=== PATIENT | female | born 1990 | race Caucasian/White ===

== ENCOUNTER 2020-12-10 08:11 | Emergency (ER) | payer SELFPAY ==
[~2020-12-10] VITALS: Ht 165.1 cm; Wt 97.5 kg
[~2020-12-10 08:11] MED LIST: IBP600T1 PO; OMEP20TA2 PO; OXYC-12 PO; PRD20T PO; PREN-115 PO; SULF1TAB38 PO
[2020-12-10] MEDS ORDERED: ONDANSETRON 4 MG/2 ML (SDV) Z0FRAN ONE (08:38)
[2020-12-10] MEDS ORDERED: LACTATED RINGERS 1,000 ML IV ONE (08:38)
[2020-12-10] MEDS ORDERED: IBUPROFEN 600 MG (MOTRIN) TAB PO ONE ×2 (08:39→08:45)
[2020-12-10] MEDS ORDERED: LACTATED RINGERS 1,000 ML IV SCH (08:45)
[2020-12-10] MEDS ORDERED: ONDANSETRON 4 MG/2 ML (SDV) Z0FRAN IV ONE (08:45)
[2020-12-10 08:50] LABS: BASOPHILS % (AUTO) 0 % (0-10); EOSINOPHILS % (AUTO) 0 % (0-10); HEMATOCRIT 44 % (35-52); HEMOGLOBIN 14.7 g/dL (11.5-16.0); LYMPHOCYTES % (AUTO) 15 % (12-44); MEAN CORPUSCULAR HEMOGLOBIN 30 pg (25-34); MEAN CORPUSCULAR HGB CONC 34 g/dL (32-36); MEAN CORPUSCULAR VOLUME 88 fL (80-99); MEAN PLATELET VOLUME 10.4 fL (9.0-12.2); MONOCYTES # (AUTO) 0.3 10^3/uL (0.0-1.0); MONOCYTES % (AUTO) 4 % (0-12); NEUTROPHILS # (AUTO) 5.4 10^3/uL (1.8-7.8); NEUTROPHILS % (AUTO) 80 % (42-75); PLATELET COUNT 227 10^3/uL (130-400); WHITE BLOOD COUNT 6.7 10^3/uL (4.3-11.0)
[2020-12-10 08:58] LABS: ALBUMIN 3.9 GM/DL (3.2-4.5); POTASSIUM 3.5 MMOL/L (3.6-5.0)
[2020-12-10 08:59] LABS: CALCIUM 8.7 MG/DL (8.5-10.1)
[2020-12-10 09:02] LABS: BILIRUBIN,TOTAL 0.6 MG/DL (0.1-1.0)
[2020-12-10 09:04] LABS: CREATININE SERUM 0.84 MG/DL (0.60-1.30)
--- NOTE | 2020-12-10 09:15 | ED Respiratory ---
General Stated Complaint: COVID +,SOB Source: patient Exam Limitations: no limitations History of Present Illness Date Seen by Provider: Dec 10, 2020 Time Seen by Provider: 08:29 Initial Comments 30-year-old female otherwise healthy coming in due to shortness of breath. She was Covid positive on 12/02 with symptoms starting 11/29. Initial symptoms were cough, fever, nausea, vomiting, and body aches. She felt significantly better roughly 3 days ago. Yesterday, she began feeling worse again, had an elevated temperature again, and began feeling more short of breath. Early in the course of Covid she received antibiotics and steroids which she has finished. She states her dyspnea is constant, moderate, and worsening over time. He never felt that short of breath earlier on in the course. He does not smoke and denies any significant medical problems. He used a cell phone oxygen saturation at and thought it was in the 80s today and she came to the emergency department. Allergies and Home Medications Allergies Coded Allergies: No Known Drug Allergies (Unverified , 11/20/10) Home Medications Ibuprofen 600 Mg Tab, 600 MG PO q6h prn Prescribed by: SOCORRO BROOKE on 07/19/12901 Oxycodone Hcl/Acetaminophen 1 Each Tablet, 1 EACH PO Q4-6H PRN Prescribed by: SOCORRO BROOKE on 07/19/12901 Patient Home Medication List Home Medication List Reviewed: Yes Review of Systems Review of Systems Constitutional: fever EENTM: No blurred vision Respiratory: cough, short of breath Cardiovascular: No chest pain Gastrointestinal: No abdominal pain, No diarrhea; nausea; No vomiting Genitourinary: No dysuria : No Musculoskeletal: No back pain Skin: No rash Psychiatric/Neurological: Denies Anxiety, Denies Depressed Hematologic/Lymphatic: No Symptoms Reported Immunological/Allergic: no symptoms reported All Other Systems Reviewed Negative Unless Noted: Yes Past Znqsjql-Zimkdt-Fryhek Hx Patient Social History Tobacco Use?: No Immunizations Up To Date Tetanus Booster (TDap): Less than 5yrs PED Vaccines UTD: No Past Medical History Reproductive Disorders: No Sexually Transmitted Disease: No HIV/AIDS: No Physical Exam Vital Signs - First Documented 12/10/20 12/10/20 08:18 09:53 Temp 37.8 Pulse 134 Resp 26 B/P (MAP) 110/79 (89) Pulse Ox 91 O2 Delivery Room Air O2 Flow Rate 2.00 Capillary Refill : Height: '" Weight: lbs. oz. kg; BMI Method:Stated General Appearance: WD/WN, no apparent distress HEENT: PERRL/EOMI, normal ENT inspection, TMs normal, pharynx normal Neck: non-tender, full range of motion, supple, normal inspection Respiratory: chest non-tender, no respiratory distress, no accessory muscle use, crackles, other (Crackles in bases) Cardiovascular: regular rate, rhythm, no edema, no murmur, tachycardia Gastrointestinal: normal bowel sounds, non tender, soft; No guarding, No re bound Extremities: normal range of motion, non-tender, normal inspection, no pedal edema, no calf tenderness Neurologic/Psychiatric: no motor/sensory deficits, alert, normal mood/affect Skin: normal color, warm/dry Lymphatic: no adenopathy Progress/Results/Core Measures Suspected Sepsis SIRS Temperature: Pulse: Respiratory Rate: Laboratory Tests 12/10/20 08:30: White Blood Count 6.7 Blood Pressure / Mean: Laboratory Tests 12/10/20 08:30: Creatinine 0.84, Platelet Count 227, Total Bilirubin 0.6 Results/Orders Lab Results Laboratory Tests Test 12/10/20 08:30 Range/Units White Blood Count 6.7 4.3-11.0 10^3/uL Red Blood Count 4.94 3.80-5.11 10^6/uL Hemoglobin 14.7 11.5-16.0 g/dL Hematocrit 44 35-52 % Mean Corpuscular Volume 88 80-99 fL Mean Corpuscular Hemoglobin 30 25-34 pg Mean Corpuscular Hemoglobin Concent 34 32-36 g/dL Red Cell Distribution Width 13.2 10.0-14.5 % Platelet Count 227 130-400 10^3/uL Mean Platelet Volume 10.4 9.0-12.2 fL Immature Granulocyte % (Auto) 1 % Neutrophils (%) (Auto) 80 H 42-75 % Lymphocytes (%) (Auto) 15 12-44 % Monocytes (%) (Auto) 4 0-12 % Eosinophils (%) (Auto) 0 0-10 % Basophils (%) (Auto) 0 0-10 % Neutrophils # (Auto) 5.4 1.8-7.8 10^3/uL Lymphocytes # (Auto) 1.0 1.0-4.0 10^3/uL Monocytes # (Auto) 0.3 0.0-1.0 10^3/uL Eosinophils # (Auto) 0.0 0.0-0.3 10^3/uL Basophils # (Auto) 0.0 0.0-0.1 10^3/uL Immature Granulocyte # (Auto) 0.1 0.0-0.1 10^3/uL D-Dimer 0.70 H 0.00-0.49 UG/ML Sodium Level 138 135-145 MMOL/L Potassium Level 3.5 L 3.6-5.0 MMOL/L Chloride Level 104 98-107 MMOL/L Carbon Dioxide Level 21 21-32 MMOL/L Anion Gap 13 5-14 MMOL/L Blood Urea Nitrogen 10 7-18 MG/DL Creatinine 0.84 0.60-1.30 MG/DL Estimat Glomerular Filtration Rate 81 BUN/Creatinine Ratio 12 Glucose Level 97 70-105 MG/DL Calcium Level 8.7 8.5-10.1 MG/DL Corrected Calcium 8.8 8.5-10.1 MG/DL Total Bilirubin 0.6 0.1-1.0 MG/DL Aspartate Amino Transf (AST/SGOT) 52 H 5-34 U/L Alanine Aminotransferase (ALT/SGPT) 52 0-55 U/L Alkaline Phosphatase 82 40-136 U/L Total Protein 7.0 6.4-8.2 GM/DL Albumin 3.9 3.2-4.5 GM/DL Serum Test, Qualitative NEGATIVE NEGATIVE My Orders Orders - ELISABET GRESHAM MD Ondansetron Injection (Zofran Injectio (12/10/20 08:38) Lactated Ringers (Lr 1000 Ml Iv Solution (12/10/20 08:38) Vital Signs: Every 4 Hours (Or (12/10/20 08:41) Monitor-Rhythm Ecg Trace Only (12/10/20 08:41) Ed Iv/Invasive Line Start (12/10/20 08:41) Cbc With Automated Diff (12/10/20 08:41) Comprehensive Metabolic Panel (12/10/20 08:41) Ekg Tracing (12/10/20 08:41) Chest 1 View, Ap/Pa Only (12/10/20 08:41) Lactated Ringers (Lr 1000 Ml Iv Solution (12/10/20 08:45) Ondansetron Injection (Zofran Injectio (12/10/20 08:45) Ibuprofen Tablet (Motrin Tablet) (12/10/20 08:45) Ibuprofen Tablet (Motrin Tablet) (12/10/20 08:39) Fibrin Degradation Products (12/10/20 09:07) Hcg,Qualitative Serum (12/10/20 09:34) Ct Angio Chest W (12/10/20 10:00) Iohexol Injection (Omnipaque 350 Mg/Ml 1 (12/10/20 10:15) Received Contrast (Hold Metformin- Contr (12/10/20 10:15) Sodium Chloride Flush (Catheter Flush Sy (12/10/20 10:15) Ns (Ivpb) (Sodium Chloride 0.9% Ivpb Bag (12/10/20 10:15) Medications Given in ED Current Medications Medications Dose Ordered Sig/Momo Route Start Time Stop Time Status Last Admin Dose Admin Ibuprofen 600 mg ONCE ONCE PO 12/10/20 08:45 12/10/20 08:46 DC 12/10/20 09:35 600 MG Iohexol 100 ml ONCE ONCE IV 12/10/20 10:15 12/10/20 10:16 DC 12/10/20 10:23 79 ML Ondansetron HCl 4 mg ONCE ONCE IV 12/10/20 08:45 12/10/20 08:46 DC 12/10/20 09:35 4 MG Sodium Chloride 10 ml NEEDED PRN IV 12/10/20 10:15 12/10/20 10:23 10 ML Sodium Chloride 100 ml ONCE ONCE IV 12/10/20 10:15 12/10/20 10:16 DC 12/10/20 10:23 70 ML Vital Signs/I&O 12/10/20 12/10/20 12/10/20 08:18 09:35 09:53 Temp 37.8 37.8 Pulse 134 Resp 26 B/P (MAP) 110/79 (89) Pulse Ox 91 89 O2 Delivery Room Air Nasal Cannula O2 Flow Rate 2.00 Capillary Refill : Progress Note : Progress Note 30-year-old female with above history coming in due to being more short of breath now roughly 11 days out from symptoms of Covid. ABCs were intact and vitals were stable on presentation although she is mildly tachycardic. She is relatively hypoxic for being a healthy patient. Her oxygen saturation hovered between 92 to 96%. I personally ambulated the patient around the room and her oxygen saturation never went below 92%. Portable chest x-ray obtained in my interpretation does have infiltrates consistent with Covid. Basic labs obtained as well as D-dimer given her EKG does have nonspecific T wave inversions. She is otherwise low risk for a PE, however we will restratify her further with D- dimer. D-dimer slightly elevated. CT PE ordered and negative for PE but does have some infiltrates consistent with Covid. Patient transiently went down to 88% and she was briefly placed on 2 L oxygen. Went back in, was able to turn the oxygen off, and again ambulated her around the room with her oxygen staying at this time above 93%. I believe she is stable at this point for discharge with outpatient follow-up. I will send some Zofran to a drive-through pharmacy. She was sent home in stable condition with strict return precautions. I have recommended that she buy a pulse oximeter online on [employer] to be shipped tomorrow so that she can monitor more accurately. ECG Initial ECG Impression Date: Dec 10, 2020 Initial ECG Impression Time: 08:50 Initial ECG Rate: 98 Comment Normal sinus rhythm with a rate of 98, narrow QRS, normal axis, no significant ST changes, T wave inversions in the inferior, anterolateral leads Diagnostic Imaging Diagonstic Imaging: Xray Plain Films/CT/US/NM/MRI: chest Comments XR with bilateral patchy infiltrates consistent with viral pneumonia Departure Impression Primary Impression: COVID-19 Disposition: 01 HOME, SELF-CARE Condition: Stable Departure-Patient Inst. Decision time for Depature: 10:43 Patient Instructions: COVID-19 ED Add. Discharge Instructions: You were seen in the emergency department for shortness of breath in the setting of being Covid positive. You do have some signs of Covid in your lungs but no blood clot in your lungs. We will send some Zofran to the [facility] for you to hot die picker through the drive-through. Try to buy a pulse oximeter on [employer] and if your oxygen saturation is at 88% or below for extended period of time then you would definitely need to come to the emergency department. You can try laying on your stomach which is called proning which can help you breathe. If you have any concerns then please come back to the emergency department. Scripts Ondansetron (Ondansetron Odt) 4 Mg Tab.rapdis 4 MG PO Q6H PRN for NAUSEA/VOMITING for 5 Days, #20 TAB 0 Refills Prov: ELISABET GRESHAM MD 12/10/20 ELISABET GRESHAM MD Dec 10, 2020 09:15
--- NOTE | 2020-12-10 09:21 | Diagnostic Imaging Report ---
Indication: Shortness of breath with COVID. FINDINGS: There are bilateral perihilar and bibasilar patchy infiltrates consistent with nonspecific infiltrates. No effusion, pneumothorax or failure pattern. IMPRESSION: Bilateral perihilar and basilar infiltrates. Dictated by: Dictated on workstation # [id number]
[2020-12-10] MEDS ORDERED: HOLD METFORMIN - RECEIVED CONTRAST 20 ML VIAL IV SCH (10:15)
[2020-12-10] MEDS ORDERED: NS 100 ML (IVPB) BAG IV ONE (10:15)
[2020-12-10] MEDS ORDERED: IOHEXOL 350 MG/ML 100 ML (OMNIPAQUE 350) VIAL IV ONE (10:15)
[2020-12-10] MEDS ORDERED: CATHETER FLUSH 10 ML SYR IV PRN (10:15)
[2020-12-10] MEDS ORDERED: ONDA4TAB11 PO (10:46)
[2020-12-10 11:07] VITALS: BP 116/82
--- NOTE | 2020-12-10 17:00 | Diagnostic Imaging Report ---
EXAMINATION: CT angiography of the chest. TECHNIQUE: Contrast enhanced thin section helical images were obtained through the chest with intravenous contrast timed for the optimal opacification of the arterial structures per CTA protocol. Post-processing, reconstructions and interpretation of angiographic images of the vessels was performed. 3D MIP reconstructions were performed and reviewed. All CT scans use one or more of the following dose optimizing techniques: automated exposure control, MA and/or KvP adjustment based on a patient size and exam type, or iterative reconstruction. HISTORY: Short of breath, cough and fatigue, Covid 19. COMPARISON: None available. FINDINGS: There is no pulmonary embolism. There is moderate Covid 19 pneumonia with groundglass present in both lungs. No pleural effusion. No pneumothorax. There is no axillary or supraclavicular lymphadenopathy. There is no mediastinal lymphadenopathy. Heart size is normal. There are no coronary artery calcifications. No pericardial effusion. Aorta is normal in caliber. Limited views of the upper abdomen show small cyst in the spleen. There are no suspicious osseous lesions. IMPRESSION: 1. No pulmonary embolism. 2. Moderate Covid 19 pneumonia. Dictated by: Dictated on workstation # [id number]
== END 2020-12-10 11:07 | disposition home or self-care (01) ==
LOC: EDUNIT# 08:11 → ER 08:13
DX: U07.1 COVID-19 (principal)
CPT/HCPCS: 36415; 71045; 71275; 80053; 84703; 85025; 85379; 93005; 93041